=== PATIENT | female | born 1995 | race Caucasian/White ===

== ENCOUNTER 2017-11-18 13:04 | Inpatient (IN) | payer OTHER ==
[~2017-11-18] VITALS: Ht 170.2 cm; Wt 2.7 kg
[~2017-11-18 13:04] MED LIST: CIPRO500 MG PO; FLAGYL500MG PO; INTESTINEX1 CAP PO; PRENATAL1 TAB PO
[2017-12-09] MEDS ORDERED: NAPR500T14 PO (09:38)
[2017-12-09] MEDS ORDERED: PREPLUS CA-FE1 EACH PO (09:38)
== END 2017-12-09 12:58 | DRG 766 ==
LOC: O/R 12-06 08:03 → OB/GYN 12-06 08:03
PROVIDERS: Specialist
PROC: 0UL70ZZ Occlusion of Bilateral Fallopian Tubes, Open Approach (ICD-10-PCS; 2017-12-06)
PROC: 4A1HXCZ Monitoring of Products of Conception, Cardiac Rate, External Approach (ICD-10-PCS; 2017-12-06)
PROC: 10D00Z1 Extraction of Products of Conception, Low, Open Approach (ICD-10-PCS; principal; 2017-12-06 08:00)
DX: O82 Encounter for cesarean delivery without indication (principal); Z3A.39 39 weeks gestation of pregnancy; Z37.0 Single live birth; Z30.2 Encounter for sterilization

== ENCOUNTER 2019-06-04 13:34 | Emergency (ER) | payer OTHER ==
[~2019-06-04] VITALS: Ht 170.2 cm; Wt 92.1 kg
[~2019-06-04 13:34] MED LIST changes: +NAPR500T14 PO; +PREPLUS CA-FE1 EACH PO
== END 2019-06-04 18:01 | disposition home or self-care (01) ==
LOC: ER 13:34
DX: J35.01 Chronic tonsillitis (principal)

== ENCOUNTER 2021-03-22 08:52 | Emergency (ER) | payer OTHER ==
[~2021-03-22] VITALS: Ht 170.2 cm; Wt 63.0 kg
== END 2021-03-22 10:53 | disposition home or self-care (01) ==
LOC: ER 08:52
DX: N39.0 Urinary tract infection, site not specified (principal)

== ENCOUNTER 2021-03-23 13:58 | Emergency (ER) | payer OTHER ==
[~2021-03-23] VITALS: Ht 170.2 cm; Wt 63.0 kg
== END 2021-03-23 18:06 | disposition home or self-care (01) ==
LOC: ER 13:58
DX: M54.9 Dorsalgia, unspecified (principal); R50.9 Fever, unspecified; Z03.818 Encounter for observation for suspected exposure to other biological agents ruled out; N39.0 Urinary tract infection, site not specified

== ENCOUNTER 2023-09-16 15:09 | Emergency (ER) | payer OTHER ==
[~2023-09-16] VITALS: Ht 167.6 cm; Wt 67.1 kg
[2023-09-16] MEDS ORDERED: FAMOTIDINE/PF 20 MG/2 ML VIAL IV ONE (18:30)
[2023-09-16] MEDS ORDERED: ONDANSETRON HCL 2 MG/ML VIAL IV ONE (18:30)
[2023-09-16 19:42] LABS: HEMATOCRIT 26.2 % (36.0-45.00); MEAN CORPUSCULAR HEMOGLOBIN 19.7 pg (27.00-32.0); MEAN CORPUSCULAR HGB CONC 31.2 g/dl (32.0-36.0); PLATELET COUNT 404 K/uL (150-450); RED BLOOD COUNT 4.15 M/uL (4.00-6.00)
[2023-09-16 19:43] LABS: HEMOGLOBIN 8.2 g/dL (12.0-15.00); MEAN CELL VOLUME 63.1 fL (80.00-100.00)
[2023-09-16 20:05] LABS: CREATININE SERUM 0.7 mg/dL (0.55-1.02); GFR 98.25; POTASSIUM 3.61 mEq/L (3.5-5.1)
[2023-09-16 20:14] LABS: URINE APPEARANCE Clear; URINE BACTERIA 8299.2 uL (0.0-1933); URINE BILIRRUBIN Negative (NEGATIVE); URINE BLOOD Moderate; URINE COLOR Yellow; URINE EPITHELIAL CELLS 26.8 uL (0.0-38.8); URINE GLUCOSE Negative (NEGATIVE); URINE LEUKOCYTE Negative; URINE NITRATE Positive; URINE PROTEIN Negative (NEGATIVE); URINE RBC 9.9 uL (0.0-20.8); URINE WBC 29.2 uL (0.0-23.2)
[2023-09-16] MEDS ORDERED: FEOSOL325 MG PO (20:40)
[2023-09-16] MEDS ORDERED: BACTRIM DS TAB1 EACH PO (20:43)
== END 2023-09-16 21:35 | disposition home or self-care (01) ==
LOC: ER 15:09
PROVIDERS: Nurse Practitioner Family
DX: D64.89 Other specified anemias (principal); N39.0 Urinary tract infection, site not specified

== ENCOUNTER → 2025-06-13 | Emergency (ER) | payer OTHER ==
[~2025-06-13] VITALS: Ht 170.2 cm; Wt 71.7 kg
[~2025-06-13] MED LIST changes: +ACETAMINOPHEN 500 MG GEL..CAP PO ONE; +BACTRIM DS TAB1 EACH PO; +DEXAMETHASONE SODIUM PHOSPHATE 4 MG/ML VIAL IM ONE; +DEXAMETHASONE SODIUM PHOSPHATE 4 MG/ML VIAL ONE; +FEOSOL325 MG PO; +KETO10TA2 PO; +KETOROLAC TROMETHAMINE 60 MG VIAL IM ONE; +MEDROLPACK PO; +NORFLEX100MG PO; +ORPHENADRINE CITRATE 30 MG/ML AMPUL IM ONE; +ORPHENADRINE CITRATE 30 MG/ML AMPUL ONE; +PEPCID AC20 MG PO
== END | disposition home or self-care (01) ==
LOC: ER 15:54
DX: M62.838 Other muscle spasm (principal); M54.16 Radiculopathy, lumbar region